=== PATIENT | female | born 1975 | race Caucasian/White ===

== ENCOUNTER → 2018-04-13 09:15 | Outpatient (CLI) | payer OTHER, MEDICAID, SELFPAY ==
--- NOTE | 2018-04-13 09:15 | DT_ITS ---
This patient was seen during an EMR downtime April 13, 2018 - April 20, 2018. This patient may have a combination of paper and electronic documentation or all paper documentation. All documentation is viewable within the e-chart portion of [employer] for each patient visit.
== END ==
PROVIDERS: Family Provider Family Medicine; PCP Family Medicine; Visit Provider Obstetrics & Gynecology
DX: N39.0 Urinary tract infection, site not specified (principal)
CPT/HCPCS: 81001

== ENCOUNTER → 2018-04-13 09:15 | Outpatient (CLI) | payer OTHER, SELFPAY ==
--- NOTE | 2018-04-13 09:15 | DT_ITS ---
This patient was seen during an EMR downtime April 13, 2018 - April 20, 2018. This patient may have a combination of paper and electronic documentation or all paper documentation. All documentation is viewable within the e-chart portion of [facility] for each patient visit.
[2018-04-16 18:17] LABS: Bacteria 0 SEEN /hpf (None Seen); Red Blood Cells-Urine 0 SEEN /hpf (0-5); White Blood Cells 0 SEEN /hpf (0-5)
[2018-04-16 18:29] LABS: Color, Urine Yellow (Yellow); Glucose, Dipstick NEGATIVE (Normal); Ketone-Dipstick Negative (Negative); Leukocyte Esterase-Dipstick Negative /ul (Negative); Mucous, Urine 1+ /hpf (<or=2+); Nitrite-Dipstick Negative (Negative); Occult Blood-Urine Negative /ul (Negative); Protein-Dipstick 15 mg/dl (Negative); Squamous Epithelial Cells - UA 0-5 SEEN /hpf (5-10); Urine Bilirubin Dipstick Negative (Negative); Urine Clarity Sl Cldy (Clear); Urine Urobilinogen Normal (Normal)
== END ==
PROVIDERS: Family Provider Family Medicine; PCP Family Medicine; Visit Provider Obstetrics & Gynecology
DX: N39.0 Urinary tract infection, site not specified (principal)
CPT/HCPCS: 81001

== ENCOUNTER → 2018-04-20 07:55 | Outpatient (CLI) | payer OTHER, SELFPAY ==
--- NOTE | 2018-04-20 07:55 | DT_ITS ---
This patient was seen during an EMR downtime April 13, 2018 - April 20, 2018. This patient may have a combination of paper and electronic documentation or all paper documentation. All documentation is viewable within the e-chart portion of [facility] for each patient visit.
--- NOTE | 2018-04-20 07:59 | BI_ITS ---
MAMMOGRAPHY - BILATERAL SCREENING REASON FOR EXAM: Female, 42 years old. Routine annual screening examination. PERTINENT HISTORY: Non-contributory. TECHNIQUE: Digital bilateral breast bri (3D mammographic acquisition) in the CC and MLO projections. 2-D mediolateral oblique (MLO) and craniocaudad (CC) views of both breasts were obtained. CAD: Full Field Digital Mammography with Computer Added Detection was performed. COMPARISON: Comparison is made with prior study dated April 14, 2017. FINDINGS: Breast Composition: There are scattered areas of fibroglandular density. There are no dominant masses or suspicious calcifications. No other significant abnormalities are identified. There has been no significant change since the prior study. BI/SCREENING MAMM (CAD), BILAT IMPRESSION: Stable bilateral screening mammogram. Yearly follow-up mammogram recommended. (A) ASSESSMENT CATEGORY: BIRADS Category 1: Negative. A letter regarding these results will be sent to the patient by the facility within 30 days. Approximately 10% of breast cancers are not detected by mammography. A normal mammogram should not delay biopsy of a clinically suspicious abnormality. [id number] Electronically Signed: Yohan Haddad MD at 14:06 EDT Tel [phone], Service support ,
== END ==
PROVIDERS: Family Provider Family Medicine; PCP Family Medicine; Visit Provider Obstetrics & Gynecology
DX: Z12.31 Encounter for screening mammogram for malignant neoplasm of breast (principal)
CPT/HCPCS: 77063; 77067

== ENCOUNTER → 2018-04-27 09:06 | Outpatient (CLI) | payer OTHER, MEDICAID, SELFPAY ==
[2018-04-27 09:36] LABS: Hematocrit 35.5 % (37-47); Hemoglobin 10.9 g/dl (12.0-15.0); Mean Corp Hgb Conc 30.7 g/gl (32-36); Mean Corpuscular Volume 78.2 fL (81-99); Mean Platelet Vol. 9.7 fl (6.2-12.0); Platelet Count 219 K/mm3 (150-450); RBC Distribution Width CV 15.9 % (11.6-14.6); RBC Distribution Width SD 45.3 fl (35.1-43.9); Red Blood Count 4.54 M/mm3 (4.2-5.4); White Blood Count 6.3 K/mm3 (4.4-11.0)
[2018-04-27 09:39] LABS: Scan Indicated on CBC? Y/N NO
[2018-04-27 09:52] LABS: Glucose 75GTT - Fasting 90 mg/dL (70-99)
[2018-04-27 10:09] LABS: Progesterone Level 0.22 ng/mL (See Comment); Vitamin D,25 Hydroxy 19.6 ng/mL (29.95-100.01)
[2018-04-27 10:19] LABS: Insulin 75GTT - Fasting 17.5 mU/L (2.6-37.6)
[2018-04-27 11:27] LABS: Glucose 75GTT - 60 minutes 133 mg/dL (100-160)
[2018-04-27 11:27] LABS: Glucose 75GTT - 30 minutes 111 mg/dL (100-160)
[2018-04-27 12:18] LABS: Insulin 75GTT - 60 min 123.5 mU/L (Not Estab)
[2018-04-27 12:18] LABS: Insulin 75GTT - 30 MIN 117.7 mU/L (Not Estab.)
[2018-04-27 12:23] LABS: Glucose 75GTT - 120 minutes 125 mg/dL (70-140)
[2018-04-27 12:28] LABS: Insulin 75GTT - 120 min 190.1 mU/L (Not Estab.)
[2018-04-27 13:17] LABS: ALB/GLOB Ratio 0.9 RATIO (0.9-2.4); AST(SGOT) 12 U/L (15-37); Alanine Aminotransfer ALT/SGPT 25 U/L (13-56); Albumin, Serum 3.5 g/dL (3.2-5.0); Alkaline Phosphatase 70 U/L (45-117); Anion Gap 6 (5-15); BUN 11 mg/dL (7-18); BUN/Creat Ratio 18.4 RATIO (10-20); Chloride 108 mmol/L (98-107); EST Glomerular Filtration Rate 117 mL/min (>60); Est Glom Filt Rate - Afr Amer 142 mL/min (>60); Estradiol 37.1 pg/mL; Follicle Stimulating Hormone 5.7 mIU/mL; Free T3 2.5 pg/mL (2.18-3.98); Globulin 3.8 g/dL (2.2-4.2); Glucose 86 mg/dL (74-106); Potassium 3.8 mmol/L (3.5-5.1); Prolactin 5.6 ng/mL; Protein, Total 7.3 g/dL (6.4-8.2); Sodium Level 141 mmol/L (136-145); T4 Free Direct 1.36 ng/dL (0.76-1.46)
[2018-04-28 04:10] LABS: DHEA Sulfate 66.5 ug/dL (57.3-279.2)
[2018-04-28 14:42] LABS: Sex Hormone-binding Globulin 43.3 nmol/L (24.6-122.0)
[2018-04-29 14:59] LABS: 17-Hydroxyprogesterone 14 ng/dL (.)
== END ==
PROVIDERS: Family Provider Family Medicine; PCP Family Medicine; Visit Provider Obstetrics & Gynecology
DX: R53.83 Other fatigue (principal); N92.1 Excessive and frequent menstruation with irregular cycle; Z68.37 Body mass index [BMI] 37.0-37.9, adult
CPT/HCPCS: 36415; 80053; 82306; 82533; 82627; 82670; 82951; 82952; 83001; 83498; 83525; 84144; 84146; 84270; 84403; 84439; 84443; 84481; 85027; 82626

== ENCOUNTER → 2018-06-22 08:47 | Outpatient (CLI) | payer OTHER, SELFPAY ==
[2018-06-22 12:07] LABS: Estradiol 63.7 pg/mL
[2018-06-23 04:10] LABS: DHEA Sulfate 92.9 ug/dL (57.3-279.2)
[2018-06-23 07:05] LABS: Sex Hormone-binding Globulin 50.8 nmol/L (24.6-122.0)
== END ==
PROVIDERS: Visit Provider Obstetrics & Gynecology
DX: R45.86 Emotional lability (principal); D50.8 Other iron deficiency anemias; N92.4 Excessive bleeding in the premenopausal period; Z68.37 Body mass index [BMI] 37.0-37.9, adult
CPT/HCPCS: 36415; 82533; 82627; 82670; 84270; 84403; 82626

== ENCOUNTER → 2018-09-01 16:09 | Outpatient (CLI) | payer OTHER, SELFPAY ==
[2018-09-01 17:21] LABS: Hematocrit 32.2 % (37-47); Mean Corp Hgb Conc 31.1 g/gl (32-36); Mean Corpuscular Hgb 22.4 pg (27.0-32.0); Mean Platelet Vol. 10.8 fl (6.2-12.0); Platelet Count 276 K/mm3 (150-450); RBC Distribution Width SD 43.6 fl (35.1-43.9); Red Blood Count 4.47 M/mm3 (4.2-5.4); White Blood Count 8.9 K/mm3 (4.4-11.0)
[2018-09-01 17:30] LABS: Scan Indicated on CBC? Y/N NO
[2018-09-01 18:10] LABS: Vitamin D,25 Hydroxy 59.9 ng/mL (29.95-100.01)
[2018-09-01 18:11] LABS: Estradiol 99.3 pg/mL; Free T3 2.4 pg/mL (2.18-3.98); T4 Free Direct 1.33 ng/dL (0.76-1.46); Thyroid Stim Hormone (TSH) 0.12 uIU/mL (0.358-3.74)
[2018-09-03 17:37] LABS: DHEA Sulfate 64.9 ug/dL (57.3-279.2)
[2018-09-04 15:13] LABS: Sex Hormone-binding Globulin 59.2 nmol/L (24.6-122.0)
== END ==
PROVIDERS: Visit Provider Obstetrics & Gynecology
DX: N92.4 Excessive bleeding in the premenopausal period (principal); R45.86 Emotional lability; D50.8 Other iron deficiency anemias
CPT/HCPCS: 36415; 82306; 82627; 82670; 84270; 84403; 84439; 84443; 84481; 85027; 82626

== ENCOUNTER → 2018-09-29 10:39 | Outpatient (CLI) | payer OTHER, SELFPAY ==
[2018-09-29 12:45] LABS: Ferritin 4 ng/mL (8-252); Iron 17 ug/dL (50-170); Iron Binding Capacity,Total 463 ug/dL (250-450)
[2018-09-30 13:02] LABS: Transferrin 370 mg/dL (200-370)
== END ==
PROVIDERS: Visit Provider Obstetrics & Gynecology
DX: D50.8 Other iron deficiency anemias (principal)
CPT/HCPCS: 36415; 82728; 83540; 83550; 84466

== ENCOUNTER → 2018-11-09 10:17 | Outpatient (CLI) | payer OTHER, MEDICAID, SELFPAY ==
[2018-11-09 10:34] VITALS: BP 141/83; PULSE 80; RESP 16; TEMP 36.6; O2SAT 100; BMI 33.6
== END ==
PROVIDERS: Family Provider Family Medicine; PCP Family Medicine; Referring Provider Obstetrics & Gynecology; Visit Provider Obstetrics & Gynecology
DX: D50.8 Other iron deficiency anemias (principal); N92.4 Excessive bleeding in the premenopausal period; D25.9 Leiomyoma of uterus, unspecified
CPT/HCPCS: 96365; 96366 ×3; J1756; J7050; A4216

== ENCOUNTER → 2018-11-16 08:57 | Outpatient (CLI) | payer OTHER, MEDICAID, SELFPAY ==
[2018-11-09 10:34] VITALS: BMI 33.6
[2018-11-16 09:19] VITALS: BP 133/81; PULSE 94; RESP 16; TEMP 36.2; O2SAT 97; BMI 33.6
== END ==
PROVIDERS: Family Provider Family Medicine; PCP Family Medicine; Referring Provider Obstetrics & Gynecology; Visit Provider Obstetrics & Gynecology
DX: D50.8 Other iron deficiency anemias (principal); N92.4 Excessive bleeding in the premenopausal period; D25.9 Leiomyoma of uterus, unspecified
CPT/HCPCS: 96365; 96366 ×3; J1756; J7050; A4216

== ENCOUNTER → 2018-11-30 10:22 | Outpatient (CLI) | payer OTHER, MEDICAID, SELFPAY ==
[2018-11-16 09:19] VITALS: BMI 33.6
[2018-11-30 11:34] LABS: Hematocrit 40.9 % (37-47); Hemoglobin 12.8 g/dl (12.0-15.0); Mean Corp Hgb Conc 31.3 g/gl (32-36); Mean Corpuscular Hgb 24.2 pg (27.0-32.0); Mean Corpuscular Volume 77.5 fL (81-99); Mean Platelet Vol. 11.4 fl (6.2-12.0); Platelet Count 279 K/mm3 (150-450); RBC Distribution Width CV 26.2 % (11.6-14.6); RBC Distribution Width SD 69.7 fl (35.1-43.9); Red Blood Count 5.28 M/mm3 (4.2-5.4); White Blood Count 6.9 K/mm3 (4.4-11.0)
[2018-11-30 11:35] LABS: Scan Indicated on CBC? Y/N YES- FLAGS NOTED
[2018-11-30 11:42] LABS: Ferritin 72 ng/mL (8-252); Iron 43 ug/dL (50-170); Iron Binding Capacity,Total 355 ug/dL (250-450)
[2018-11-30 11:54] LABS: Differential Comment SCANNED
[2018-11-30 15:19] LABS: Vitamin B12 936 pg/mL (211-911)
--- OUTSIDE RECORDS SUMMARY | 2019-02-01 20:44 | XMS RPT_ITS ---
:1975 Author Organization OH[facility] Care Team Providers Name Role Phone , Summer Attending Unavailable Shell-Stevan, Summer Referring Unavailable CHENTE, TENISHA Primary Care Unavailable -Stevan, Summer Attending Unavailable Shell-Stevan, Summer Referring Unavailable CHENTE, TENISHA Primary Care Unavailable Shell-Stevan, Summer Attending Unavailable CHENTE, TENISHA Primary Care Unavailable , Summer Attending Unavailable -Stvean, Summer Referring Unavailable CHENTE, TENISHA Primary Care Unavailable , Summer Attending Unavailable Shell-Stevan, Summer Referring Unavailable CHENTE, TENISHA Primary Care Unavailable Shell-Stevan, Summer Attending Unavailable TENISHA CANALES Primary Care Unavailable Shell-Stevan, Summer Attending Unavailable Shell-Stevan, Summer Referring Unavailable CHENTETENISHA HERNANDEZ Primary Care Unavailable Shell-Stevan, Summer Attending Unavailable CHENTEMORGANTENISHA Primary Care Unavailable Shell-Stevan, Summer Attending Unavailable Shell-Stevan, Summer Attending Unavailable PROBLEMS PROBLEMS DATE TYPE CONDITION / CODE ATTENDING STATUS SOURCE 11/30/2018 Unknown 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, 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 [facility] / D50.8(ICD-10) Hospital Repository 09/01/2018 Unknown R45.86 - Emotional Shell-Stevan, Active [place] lability / [facility] R45.86(ICD-10) Hospital Repository 09/01/2018 Unknown N92.4 - Excessive Shell-Stevan, Active [place] bleeding in the [facility] premenopausal Hospital period / Repository N92.4(ICD-10) 06/22/2018 Unknown Z68.37 - Body mass S[place]man-Stevan, Active [place] index (BMI) [facility] 37.0-37.9, adult / Hospital Z68.37(ICD-10) Repository 04/27/2018 Unknown R53.83 - Other Shell-Stevan, Active [place] fatigue / [facility] R53.83(ICD-10) Hospital Repository 04/27/2018 Unknown N92.1 - Excessive Shell-Stevan, Active [place] and frequent [facility] menstruation with Hospital irregular cycle / Repository N92.1(ICD-10) 05/06/2018 Unknown Z12.31 - Encounter Shell-Stevan, Active [place] for screening [facility] mammogram for Hospital malignant neoplasm Repository of breast / Z12.31(ICD-10) 05/06/2018 Unknown N39.0 - Urinary Shell-Stevan, Active [place] tract infection, [facility] site not specified Hospital / N39.0(ICD-10) Repository PROCEDURES PROCEDURES No Procedure Records FoundRESULTS RESULTS CBC-COMPLETE BLOOD CNT Collected: 11/30/2018 Status: F Source: [place] NO DIFF 10:25 AM [facility] REPOSITORY TYPE CODE TESTS RESULT OUT OF RANGE REFERENCE UNITS LAB L100.1000 4.4-11.0 K/mm3 Normal WBC 6.9 LAB L100.1200 4.2-5.4 M/mm3 Normal RBC 5.28 LAB L100.1300 12.0-15.0 g/dl Normal HGB 12.8 LAB L100.1400 37-47 % Normal HCT 40.9 LAB L100.1500 81-99 fL Low MCV 77.5 LAB L100.1600 27.0-32.0 pg Low MCH 24.2 LAB L100.1700 32-36 g/gl Low MCHC 31.3 LAB L100.1810 11.6-14.6 % High RDW CV 26.2 LAB L100.1820 35.1-43.9 fl High RDW SD 69.7 LAB L100.1900 150-450 K/mm3 Normal PLT 279 LAB L100.2000 6.2-12.0 fl Normal MPV 11.4 Performed By: #### L100.0500, L100.4500 #### [facility] [address] [place], [address] DIFFERENTIAL COMMENT Collected: 11/30/2018 Status: F Source: [place] 10:[address] [facility] REPOSITORY TYPE CODE TESTS RESULT OUT OF RANGE REFERENCE UNITS LAB L100.4500 Normal SMEAR COMMENT SCANNED Result Comment: 1+ ANISOCYTOSIS Performed By: #### L100.0500, L100.4500 #### [facility] [address] [place], [place], [id number] IRON BINDING Collected: 11/30/2018 Status: F Source: [place] [facility] [place],TOTAL 10:[address] [facility] REPOSITORY TYPE CODE TESTS RESULT OUT OF RANGE REFERENCE UNITS LAB L503.6075 250-450 ug/dL Normal TIBC 355 Performed By: #### L503.6075, L503.6150, L503.6550 #### [facility] [address] [place], [place], [id number] IRON Collected: 11/30/2018 Status: F Source: [place] 10:[address] [facility] REPOSITORY TYPE CODE TESTS RESULT OUT OF RANGE REFERENCE UNITS LAB L503.6150 50-170 ug/dL Low IRON 43 Performed By: #### L503.6075, L503.6150, L503.6550 #### [facility] [address] [place], [address] FERRITIN Collected: 11/30/2018 Status: F Source: [place] 10:[address] [facility] REPOSITORY TYPE CODE TESTS RESULT OUT OF RANGE REFERENCE UNITS LAB L503.6550 8-252 ng/mL Normal FERRITIN 72 Performed By: #### L503.6075, L503.6150, L503.6550 #### [facility] [address] [place], [address] VITAMIN B12 Collected: 11/30/2018 Status: F Source: [place] 10:[address] [facility] REPOSITORY Order Comment: PLEASE ADD TO LABS DRAWN THIS MORNING: MG3-1-F TYPE CODE TESTS RESULT OUT OF REFERENCE UNITS RANGE LAB L503.0105 211-911 pg/mL High Vitamin B12 936 Performed By: #### L503.0105 #### [facility] [address] [place] [address] [place], [address] IRON BINDING Collected: 09/29/2018 Status: F Source: [place],TOTAL 10:[address] [facility] REPOSITORY TYPE CODE TESTS RESULT OUT OF RANGE REFERENCE UNITS LAB L503.6075 250-450 ug/dL High TIBC 463 Performed By: #### L503.6075, L503.6150, L503.6550 #### [facility] [address] [place], [address] IRON Collected: 09/29/2018 Status: F Source: [place] 10:[address] [facility] REPOSITORY TYPE CODE TESTS RESULT OUT OF RANGE REFERENCE UNITS LAB L503.6150 50-170 ug/dL Low IRON 17 Performed By: #### L503.6075, L503.6150, L503.6550 #### [facility] [address] [place], [address] FERRITIN Collected: 09/29/2018 Status: F Source: [place] 10:[address] [facility] REPOSITORY TYPE CODE TESTS RESULT OUT OF REFERENCE UNITS RANGE LAB L503.6550 8-252 ng/mL Low FERRITIN 4 Performed By: #### L503.6075, L503.6150, L503.6550 #### [place] [facility] [address] [place], [place], [id number] TRANSFERRIN Collected: 09/29/2018 Status: F Source: [place] 10:[address] [facility] REPOSITORY TYPE CODE TESTS RESULT OUT OF RANGE REFERENCE UNITS LAB L3400.3800 200-370 mg/dL Normal TRANSFERRN 4937 370 Result Comment: Performed at: - [facility] [address] [id number] Order Entry Representative: Jay Lorenzana PhD, Phone: [phone] Performed By: #### L3400.3800 #### [facility] (refer to report for specific site) refer to report for address and phone number CBC-COMPLETE BLOOD CNT Collected: 09/01/2018 Status: F Source: [place] NO DIFF 4:[address] [facility] REPOSITORY TYPE CODE TESTS RESULT OUT OF RANGE REFERENCE UNITS LAB L100.1000 4.4-11.0 K/mm3 Normal WBC 8.9 LAB L100.1200 4.2-5.4 M/mm3 Normal RBC 4.47 LAB L100.1300 12.0-15.0 g/dl Low HGB 10.0 LAB L100.1400 37-47 % Low HCT 32.2 LAB L100.1500 81-99 fL Low MCV 72.0 LAB L100.1600 27.0-32.0 pg Low MCH 22.4 LAB L100.1700 32-36 g/gl Low MCHC 31.1 LAB L100.1810 11.6-14.6 % High RDW CV 17.0 LAB L100.1820 35.1-43.9 fl Normal RDW SD 43.6 LAB L100.1900 150-450 K/mm3 Normal PLT 276 LAB L100.2000 6.2-12.0 fl Normal MPV 10.8 Performed By: #### L100.0500 #### [facility] [address] [place], [address] VITAMIN D,25 HYDROXY Collected: 09/01/2018 Status: F Source: [place] 4:[address] [facility] REPOSITORY TYPE CODE TESTS RESULT OUT OF RANGE REFERENCE UNITS LAB L506.1000 29.95-100.01 ng/mL Normal Vitamin D 59.9 25-OH Result Comment: Vitamin D 25(OH) Status Range Deficiency <20 ng/mL (50nmol/L) Insuffciency 20 - 30 ng/mL (50 - 75 nmol/L) Sufficiency 30 - 100 ng/mL (75 - 250 nmol/L) Toxicity >100 ng/mL (>250 nmol/L) Performed By: #### L506.1000, L509.3000 #### [facility] [address] [place], [address] TESTOSTERONE, SERUM TOTAL Collected: 09/01/2018 Status: F Source: [place] 4:[address] [facility] REPOSITORY TYPE CODE TESTS RESULT OUT OF REFERENCE UNITS RANGE LAB L509.3000 ng/dL Testosterone Normal 13.60 Result Comment: NORMAL REFERENCE RANGES MALE AGE <50 123.06 - 813.86 ng/dL MALE AGE >50 89.98 - 780.10 ng/dL FEMALE PREMENOPAUSE AGE 21 - 60 9.01 - 47.94 ng/dL FEMALE POSTMENOPAUSE AGE 45 - 89 <7.00 - 45.62 ng/dL REFERENCE RANGE AND METHODOLOGY CHANGED 10/29/2017 Performed By: #### L506.1000, L509.3000 #### [facility] [address] [place], [place], [address] FREE T3 Collected: 09/01/2018 Status: F Source: [place] 4:[address] [facility] REPOSITORY Order Comment: Has Patient had X-rays with Contrast this admission? N TYPE CODE TESTS RESULT OUT OF RANGE REFERENCE UNITS LAB L501.33725 2.18-3.98 pg/mL Normal FREE T3 2.4 Performed By: #### L501.70815, L501.9520, L506.0400, L3300.1750 #### [facility] [address] [place], [address] THYROID STIM HORMONE Collected: 09/01/2018 Status: F Source: [place] (TSH) 4:[address] [facility] REPOSITORY Order Comment: Has Patient had X-rays with Contrast this admission? N TYPE CODE TESTS RESULT OUT OF RANGE REFERENCE UNITS LAB L501.9520 0.358-3.74 uIU/mL Low TSH 0.12 Performed By: #### L501.65174, L501.9520, L506.0400, L3300.1750 #### [facility] [address] [place], [place], [address] T4 FREE DIRECT Collected: 09/01/2018 Status: F Source: [place] 4:[address] [facility] REPOSITORY Order Comment: Has Patient had X-rays with Contrast this admission? N TYPE CODE TESTS RESULT OUT OF RANGE REFERENCE UNITS LAB L506.0400 0.76-1.46 ng/dL Normal T4 FREE 1.33 DIRECT Performed By: #### L501.43971, L501.9520, L506.0400, L3300.1750 #### [facility] [address] [place], [place], [address] ESTRADIOL Collected: 09/01/2018 Status: F Source: [place] 4:[address] [facility] REPOSITORY Order Comment: Has Patient had X-rays with Contrast this admission? N TYPE CODE TESTS RESULT OUT OF RANGE REFERENCE UNITS LAB L3300.1750 pg/mL Normal ESTRADIOL 99.3 Result Comment: NORMAL REFERENCE RANGES FEMALE FOLLICULAR 21.4 - 164.8 pg/mL MID-CYCLE PEAK 49.9 - 367.2 pg/mL LUTEAL 40.2 - 259.0 pg/mL POST-MENOPAUSAL ON MHT <11.0 - 462.1 pg/mL NOT ON MHT <11.0 - 58.3 pg/mL MALE <11.0 - 52.5 pg/mL NOTE: [facility] HAS CONFIRMED THE DRUG FULVETRANT (FASLODEX) MAY CAUSE FALSELY ELEVATED ESTRADIOL RESULTS WHEN USING THIS TEST METHOD. IF PATIENT IS TAKING FULVESTRANT AN ALTERNATIVE METHOD SHOULD BE USED TO DETERMINE ESTRADIOL CONCENTRATION. Performed By: #### L501.39858, L501.9520, L506.0400, L3300.1750 #### [facility] [address] [place], [place], [address] SEX HORMONE-BINDING Collected: 09/01/2018 Status: F Source: [place] GLOBULIN 4:[address] [facility] REPOSITORY Order Comment: Has Patient had Radioactive Injection for X-ray?: N TYPE CODE TESTS RESULT OUT OF RANGE REFERENCE UNITS LAB L3100.5060 24.6-122.0 nmol/L Normal SHBG 59.2 Result Comment: Performed at: [facility] [address] [id number] Order Entry Representative: Jay Lorenzana PhD, Phone: [phone] Performed By: #### L3100.5060, L3300.1500 #### [facility] (refer to report for specific site) refer to report for address and phone number DHEA SULFATE Collected: 09/01/2018 Status: F Source: [place] 4:[address] [facility] REPOSITORY Order Comment: Has Patient had Radioactive Injection for X-ray?: N TYPE CODE TESTS RESULT OUT OF RANGE REFERENCE UNITS LAB L3300.1500 57.3-279.2 ug/dL Normal DHEA SULF 64.9 4020 Performed By: #### L3100.5060, L3300.1500 #### [facility] (refer to report for specific site) refer to report for address and phone number ESTRADIOL Collected: 06/22/2018 Status: F Source: [place] 8:[address] [facility] REPOSITORY TYPE CODE TESTS RESULT OUT OF RANGE REFERENCE UNITS LAB L3300.1750 pg/mL Normal ESTRADIOL 63.7 Result Comment: NORMAL REFERENCE RANGES FEMALE FOLLICULAR 21.4 - 164.8 pg/mL MID-CYCLE PEAK 49.9 - 367.2 pg/mL LUTEAL 40.2 - 259.0 pg/mL POST-MENOPAUSAL ON MHT <11.0 - 462.1 pg/mL NOT ON MHT <11.0 - 58.3 pg/mL MALE <11.0 - 52.5 pg/mL NOTE: [facility] HAS CONFIRMED THE DRUG FULVETRANT (FASLODEX) MAY CAUSE FALSELY ELEVATED ESTRADIOL RESULTS WHEN USING THIS TEST METHOD. IF PATIENT IS TAKING FULVESTRANT AN ALTERNATIVE METHOD SHOULD BE USED TO DETERMINE ESTRADIOL CONCENTRATION. Performed By: #### L3300.1750 #### [facility] [address] [place], [address] TESTOSTERONE, SERUM TOTAL Collected: 06/22/2018 Status: F Source: [place] 8:[address] [facility] REPOSITORY TYPE CODE TESTS RESULT OUT OF REFERENCE UNITS RANGE LAB L509.3000 ng/dL Testosterone Normal 15.83 Result Comment: NORMAL REFERENCE RANGES MALE AGE <50 123.06 - 813.86 ng/dL MALE AGE >50 89.98 - 780.10 ng/dL FEMALE PREMENOPAUSE AGE 21 - 60 9.01 - 47.94 ng/dL FEMALE POSTMENOPAUSE AGE 45 - 89 <7.00 - 45.62 ng/dL REFERENCE RANGE AND METHODOLOGY CHANGED 10/29/2017 Performed By: #### L509.3000, L509.6000 #### [facility] [address] [facility] [place], [address] CORTISOL SERUM Collected: 06/22/2018 Status: F Source: [place] 8:[address] [facility] REPOSITORY TYPE CODE TESTS RESULT OUT OF RANGE REFERENCE UNITS LAB L509.6000 3.09-22.40 ug/dL Normal CORTISOL 14.20 Result Comment: Adult (AM) 4.30 - 22.40 ug/dL Adult (PM) 3.09 - 16.66 ug/dL Performed By: #### L509.3000, L509.6000 #### [facility] [address] [facility] [address] [place], [place], [address] SEX HORMONE-BINDING Collected: 06/22/2018 Status: F Source: [place] GLOBULIN 8:[address] [facility] REPOSITORY Order Comment: Has Patient had Radioactive Injection for X-ray?: N TYPE CODE TESTS RESULT OUT OF RANGE REFERENCE UNITS LAB L3100.5060 24.6-122.0 nmol/L Normal SHBG 50.8 Result Comment: Performed at: [address] [id number] Order Entry Representative: Jay Lorenzana PhD, Phone: [phone] Performed By: #### L3100.5060, L3300.1500 #### [facility]er [facility] for specific [facility] refer to report for address and phone number DHEA SULFATE Collected: 06/22/2018 Status: F Source: [place] 8:[address] [facility] REPOSITORY Order Comment: Has Patient had Radioactive Injection for X-ray?: N TYPE CODE TESTS RESULT OUT OF RANGE REFERENCE UNITS LAB L3300.1500 57.3-279.2 ug/dL Normal DHEA SULF 92.9 4020 Performed By: #### L3100.5060, L3300.1500 #### [facility] (refer to report for specific site) refer to report for address and phone number DOWNTIME REPORT Observed: 04/30/2018 Status: F Source: [place] 1:28 PM [facility] Medical Records Department [address] [place] [address] Downtime Report MR#: [id number] Acct: [id number] Name: ENE MORGAN Rep #: [id number] : 1975 42 From: [place] PCP: Tenisha Canales MD Status: REG CLI This patient was seen during an EMR downtime April 13, 2018 - April 20, 2018. This patient may have a combination of paper and electronic documentation or all paper documentation. All documentation is viewable within the e-chart portion of [employer] for each patient visit. DOWNTIME REPORT Observed: 04/30/2018 Status: F Source: [place] 1:24 PM [facility] Medical Records Department [address] [place] [address] Downtime Report MR#: [id number] Acct: [id number] Name: ENE MORGAN Rep #: [id number] : 1975 42 From: [place] PCP: Tenisha Canales MD Status: REG CLI This patient was seen during an EMR downtime April 13, 2018 - April 20, 2018. This patient may have a combination of paper and electronic documentation or all paper documentation. All documentation is viewable within the e-chart portion of [employer] for each patient visit. DOWNTIME REPORT Observed: 04/30/2018 Status: F Source: [place] 12:26 PM [facility] Medical Records Department [address] [place] [address] Downtime Report MR#: [id number] Acct: [id number] Name: ENE MORGAN Rep #: [id number] : 1975 42 From: [place] PCP: Tenisha Canales MD Status: REG CLI This patient was seen during an EMR downtime April 13, 2018 - April 20, 2018. This patient may have a combination of paper and electronic documentation or all paper documentation. All documentation is viewable within the e-chart portion of [employer] for each patient visit. 2 HR GLUCOSE TOLERANCE Collected: 04/27/2018 Status: F Source: [place] - 75 GM 9:[address] [facility] REPOSITORY Order Comment: Is Patient Fasting? Y TYPE CODE TESTS RESULT OUT OF RANGE REFERENCE UNITS LAB L501.0703 70-99 mg/dL Normal GLU 75GTT 90 - F Result Comment: GLUCOSE TOLERANCE TEST Reference Interval Non- Adults Fasting 70 - 99 30 minutes 100 - 160 60 minutes 100 - 160 120 minutes 70 - 140 LAB L501.0705 100-160 mg/dL Normal GLU 75GTT - 30 111 Result Comment: GLUCOSE TOLERANCE TEST Reference Interval Non- Adults Fasting 70 - 99 30 minutes 100 - 160 60 minutes 100 - 160 120 minutes 70 - 140 LAB L501.0710 100-160 mg/dL Normal GLU 75GTT - 60 133 Result Comment: GLUCOSE TOLERANCE TEST Reference Interval Non- Adults Fasting 70 - 99 30 minutes 100 - 160 60 minutes 100 - 160 120 minutes 70 - 140 LAB L501.0715 70-140 mg/dL Normal GLU 75GTT - 120 125 Result Comment: GLUCOSE TOLERANCE TEST Reference Interval Non- Adults Fasting 70 - 99 30 minutes 100 - 160 60 minutes 100 - 160 120 minutes 70 - 140 Performed By: #### L500.5100 #### [facility] [address] [facility] [id number] 2 HR INSULIN - 75 GM Collected: 04/27/2018 Status: F Source: [place] 9:[address] [facility] REPOSITORY TYPE CODE TESTS RESULT OUT OF RANGE REFERENCE UNITS LAB L503.8060 2.6-37.6 mU/L Normal INSUL 17.5 75GTT - F LAB L503.8065 Not Estab. mU/L Normal INSU 117.7 75GTT - 30 LAB L503.8070 Not Estab mU/L Normal INSU 123.5 75GTT - 60 LAB L503.8075 Not Estab. mU/L Normal INSU 190.1 75GTT-120 Result Comment: 75 GRAM GLUCOLA INSULIN TEST Reference Interval Non- Adults Fasting 2.6 - 37.6 30 min Not Estab 60 min Not Estab 120 min Not Estab Performed By: #### L503.8055 #### [facility] [address] [place], [address] CBC-COMPLETE BLOOD CNT Collected: 04/27/2018 Status: F Source: [place] NO DIFF 9:[address] [facility] REPOSITORY TYPE CODE TESTS RESULT OUT OF RANGE REFERENCE UNITS LAB L100.1000 4.4-11.0 K/mm3 Normal WBC 6.3 LAB L100.1200 4.2-5.4 M/mm3 Normal RBC 4.54 LAB L100.1300 12.0-15.0 g/dl Low HGB 10.9 LAB L100.1400 37-47 % Low HCT 35.5 LAB L100.1500 81-99 fL Low MCV 78.2 LAB L100.1600 27.0-32.0 pg Low MCH 24.0 LAB L100.1700 32-36 g/gl Low MCHC 30.7 LAB L100.1810 11.6-14.6 % High RDW CV 15.9 LAB L100.1820 35.1-43.9 fl High RDW SD 45.3 LAB L100.1900 150-450 K/mm3 Normal PLT 219 LAB L100.2000 6.2-12.0 fl Normal MPV 9.7 Performed By: #### L100.0500 #### [facility] [address] [place], [address] VITAMIN D,25 HYDROXY Collected: 04/27/2018 Status: F Source: [place] 9:[address] [facility] REPOSITORY Order Comment: BASELINE OR POST MEDICATION STIMULATION?: Baseline TYPE CODE TESTS RESULT OUT OF REFERENCE UNITS RANGE LAB L506.1000 29.95-100.01 ng/mL Low Vitamin D 19.6 25-OH Result Comment: Vitamin D 25(OH) Status Range Deficiency <20 ng/mL (50nmol/L) Insuffciency 20 - 30 ng/mL (50 - 75 nmol/L) Sufficiency 30 - 100 ng/mL (75 - 250 nmol/L) Toxicity >100 ng/mL (>250 nmol/L) Performed By: #### L506.1000, L509.3000, L509.4001, L509.6000 #### [facility] [address] [place], [address] TESTOSTERONE, SERUM TOTAL Collected: 04/27/2018 Status: F Source: [place] 9:[address] [facility] REPOSITORY Order Comment: BASELINE OR POST MEDICATION STIMULATION?: Baseline TYPE CODE TESTS RESULT OUT OF REFERENCE UNITS RANGE LAB L509.3000 ng/dL Testosterone Normal 11.52 Result Comment: NORMAL REFERENCE RANGES MALE AGE <50 123.06 - 813.86 ng/dL MALE AGE >50 89.98 - 780.10 ng/dL FEMALE PREMENOPAUSE AGE 21 - 60 9.01 - 47.94 ng/dL FEMALE POSTMENOPAUSE AGE 45 - 89 <7.00 - 45.62 ng/dL REFERENCE RANGE AND METHODOLOGY CHANGED 10/29/2017 Performed By: #### L506.1000, L509.3000, L509.4001, L509.6000 #### [facility] [address] [place], [place], [id number] PROGESTERONE LEVEL Collected: 04/27/2018 Status: F Source: [place] 9:[address] [facility] REPOSITORY Order Comment: BASELINE OR POST MEDICATION STIMULATION?: Baseline TYPE CODE TESTS RESULT OUT OF REFERENCE UNITS RANGE LAB L509.4001 See Comment ng/mL Progesterone Normal 0.22 Result Comment: Progesterone Reference Table: UNITS Female: Follicular 0.15 - 1.40 ng/mL Luteal 3.34 - 25.56 ng/mL Mid-luteal 4.44 - 28.03 ng/mL Postmenopausal 0.0 - 0.73 ng/mL : 1st Trimester 11.22 - 90.00 ng/mL 2nd Trimester 25.55 - 89.40 ng/mL 3rd Trimester 48.40 -422.50 ng/mL Performed By: #### L506.1000, L509.3000, L509.4001, L509.6000 #### [facility] [address] [facility] [place], [place], [address] CORTISOL SERUM Collected: 04/27/2018 Status: F Source: [place] 9:[address] [facility] REPOSITORY Order Comment: BASELINE OR POST MEDICATION STIMULATION?: Baseline TYPE CODE TESTS RESULT OUT OF RANGE REFERENCE UNITS LAB L509.6000 3.09-22.40 ug/dL Normal CORTISOL 3.60 Result Comment: Adult (AM) 4.30 - 22.40 ug/dL Adult (PM) 3.09 - 16.66 ug/dL Performed By: #### L506.1000, L509.3000, L509.4001, L509.6000 #### [facility] [address] [place], [place], [address] COMPREHENSIVE METABOLIC Collected: 04/27/2018 Status: F Source: [place] DICKINSON 9:[address] [facility] REPOSITORY TYPE CODE TESTS RESULT OUT OF RANGE REFERENCE UNITS LAB L501.0100 74-106 mg/dL Normal GLU 86 Result Comment: Please note revised GLUCOSE reference range effective 2017. LAB L501.1000 7-18 mg/dL Normal BUN 11 LAB L501.1100 0.55-1.02 mg/dL Normal CREAT,SERUM 0.60 Result Comment: The validity of the calculated GFR AND GFRAA in patients over 70 years has not been determined. Clinical correlation is essential. LAB L501.1110 >60 mL/min Normal EST GFR 117 Result Comment: Non- GFR Calc LAB L501.1115 >60 mL/min Normal EST GFR - AA 142 Result Comment: GFR Calc LAB L501.1300 10-20 RATIO Normal BUN/CRE 18.4 LAB L501.1500 6.4-8.2 g/dL T Normal PROT 7.3 LAB L501.1800 3.2-5.0 g/dL Normal ALB 3.5 LAB L501.1950 2.2-4.2 g/dL Normal GLOB 3.8 LAB L501.2000 0.9-2.4 RATIO Normal A/G 0.9 LAB L501.2200 8.5-10.1 mg/dL Low CA 8.0 LAB L501.4100 15-37 U/L Low AST 12 LAB L501.4305 45-117 U/L Normal ALK P 70 LAB L501.4405 13-56 U/L Normal ALT 25 LAB L501.4600 0.20-1.00 mg/dL T Normal BILI 0.20 LAB L501.5300 136-145 mmol/L NA Normal 141 LAB L501.5600 3.5-5.1 mmol/L K Normal 3.8 LAB L501.5900 98-107 mmol/L High CL 108 LAB L501.6100 21.0-32.0 mmol/L Normal CO2 27.0 LAB L501.6200 5-15 Normal GAP 6 Performed By: #### L500.4050, L501.66060, L501.9520, L506.0400, L3100.5125, L3100.5420, L3300.1750 #### [facility] [address] [place], [address] FREE T3 Collected: 04/27/2018 Status: F Source: [place] 9:[address] [facility] REPOSITORY TYPE CODE TESTS RESULT OUT OF RANGE REFERENCE UNITS LAB L501.18752 2.18-3.98 pg/mL Normal FREE T3 2.5 Performed By: #### L500.4050, L501.95245, L501.9520, L506.0400, L3100.5125, L3100.5420, L3300.1750 #### [place] [facility] [address] [place], [address] THYROID STIM HORMONE Collected: 04/27/2018 Status: F Source: PETTY (TSH) 9:[address] [facility] REPOSITORY TYPE CODE TESTS RESULT OUT OF RANGE REFERENCE UNITS LAB L501.9520 0.358-3.74 uIU/mL Low TSH 0.10 Performed By: #### L500.4050, L501.29375, L501.9520, L506.0400, L3100.5125, L3100.5420, L3300.1750 #### [facility] [address] [place], [address] T4 FREE DIRECT Collected: 04/27/2018 Status: F Source: PETTY 9:[address] [facility] REPOSITORY TYPE CODE TESTS RESULT OUT OF RANGE REFERENCE UNITS LAB L506.0400 0.76-1.46 ng/dL Normal T4 FREE 1.36 DIRECT Performed By: #### L500.4050, L501.41511, L501.9520, L506.0400, L3100.5125, L3100.5420, L3300.1750 #### [facility] [address] [place], [address] FOLLICLE STIMULATING Collected: 04/27/2018 Status: F Source: PETTY HORMONE 9:[address] [facility] REPOSITORY TYPE CODE TESTS RESULT OUT OF RANGE REFERENCE UNITS LAB L3100.5125 mIU/mL Normal FSH 5.7 Result Comment: NORMAL REFERENCE RANGES FEMALE FOLLICULAR 2.3 - 12.6 mIU/mL MID-CYCLE PEAK 5.2 - 17.5 mIU/mL LUTEAL 1.7 - 12.9 mIU/mL POST-MENOPAUSAL ON MHT 5.9 - 72.8 mIU/mL NOT ON MHT 12.7 - 132.2 mlU/mL MALE 0.7 - 10.8 mIU/mL NEW TEST METHOD AND REFERENCE RANGES MARCH 30, 2012 Performed By: #### L500.4050, L501.85677, L501.9520, L506.0400, L3100.5125, L3100.5420, L3300.1750 #### [facility] [address] [place], [place], [address] PROLACTIN Collected: 04/27/2018 Status: F Source: NAPOLEON 9:[address] [facility] REPOSITORY TYPE CODE TESTS RESULT OUT OF RANGE REFERENCE UNITS LAB L3100.5420 ng/mL Normal PROLACTIN 5.6 Result Comment: NORMAL REFERENCE RANGES FEMALE NON- 2.2 - 30.3 ng/mL 8.1 - 347.6 ng/mL POST-MENOPAUSAL 0.7 - 31.5 ng/mL MALE 2.5 - 17.4 ng/mL NEW TEST METHOD AND REFERENCE RANGES MARCH 30, 2012 Performed By: #### L500.4050, L501.78008, L501.9520, L506.0400, L3100.5125, L3100.5420, L3300.1750 #### [facility] [address] [place], [place], [address] ESTRADIOL Collected: 04/27/2018 Status: F Source: NAPOLEON 9:[address] [facility] REPOSITORY TYPE CODE TESTS RESULT OUT OF RANGE REFERENCE UNITS LAB L3300.1750 pg/mL Normal ESTRADIOL 37.1 Result Comment: NORMAL REFERENCE RANGES FEMALE FOLLICULAR 21.4 - 164.8 pg/mL MID-CYCLE PEAK 49.9 - 367.2 pg/mL LUTEAL 40.2 - 259.0 pg/mL POST-MENOPAUSAL ON MHT <11.0 - 462.1 pg/mL NOT ON MHT <11.0 - 58.3 pg/mL MALE <11.0 - 52.5 pg/mL NOTE: [facility] HAS CONFIRMED THE DRUG FULVETRANT (FASLODEX) MAY CAUSE FALSELY ELEVATED ESTRADIOL RESULTS WHEN USING THIS TEST METHOD. IF PATIENT IS TAKING FULVESTRANT AN ALTERNATIVE METHOD SHOULD BE USED TO DETERMINE ESTRADIOL CONCENTRATION. Performed By: #### L500.4050, L501.68539, L501.9520, L506.0400, L3100.5125, L3100.5420, L3300.1750 #### [facility] [address] [place], [address] SEX HORMONE-BINDING Collected: 04/27/2018 Status: F Source: PETTY GLOBULIN 9:[address] [facility] REPOSITORY Order Comment: Has Patient had Radioactive Injection for X-ray?: N TYPE CODE TESTS RESULT OUT OF RANGE REFERENCE UNITS LAB L3100.5060 24.6-122.0 nmol/L Normal SHBG 43.3 Result Comment: Performed at: [address] [id number] Order Entry Representative: Jay Lorenzana PhD, Phone: [phone] Performed By: #### L3100.5060, L3300.1500 #### [facility] (refer to report for specific site) refer to report for address and phone number DHEA SULFATE Collected: 04/27/2018 Status: F Source: PETTY 9:[address] [facility] REPOSITORY Order Comment: Has Patient had Radioactive Injection for X-ray?: N TYPE CODE TESTS RESULT OUT OF RANGE REFERENCE UNITS LAB L3300.1500 57.3-279.2 ug/dL Normal DHEA SULF 66.5 4020 Performed By: #### L3100.5060, L3300.1500 #### [facility] (refer to report for specific site) refer to report for address and phone number [phone] Collected: Status: F Source: PETTY 04/27/2018 9:[address] [facility] REPOSITORY Order Comment: Has Patient had Radioactive Injection for X-ray?: N TYPE CODE TESTS RESULT OUT OF RANGE REFERENCE UNITS LAB L3100.9000 . ng/dL Normal HYDROXPROG 17 14 Result Comment: Adult Female Follicular 15 - 70 Luteal 35 - 290 This test was developed and its performance characteristics determined by [facility]. It has not been cleared or approved by the Food and Drug Administration. Performed at: [address] [id number] Order Entry Representative: Abelardo Herrera MD, Phone: [phone] Performed By: #### L3100.9000 #### [facility] (refer to report for specific site) refer to report for address and phone number SCREENING MAMM (CAD), Observed: 04/20/2018 Status: F Source: PETTY BILAT 7:[address] [facility] REPOSITORY [facility] Services [address] [place] [address] SCREENING MAMM (CAD), BILAT MR#: [id number] Acct: [id number] Name: ENE MORGAN Rep #: [id number] : 1975 F 42 From: Yohan Haddad MD PCP: Tenisha Canales MD Status: REG CLI Study: SCREENING MAMM (CAD), BILAT Date of Exam: 04/20/18 Exam# [id number] Ordering Dr: Nkechi Osborne MD MAMMOGRAPHY - BILATERAL SCREENING REASON FOR EXAM: Female, 42 years old. Routine annual screening examination. PERTINENT HISTORY: Non-contributory. TECHNIQUE: Digital bilateral breast bri (3D mammographic acquisition) in the CC and MLO projections. 2-D mediolateral oblique (MLO) and craniocaudad (CC) views of both breasts were obtained. CAD: Full Field Digital Mammography with Computer Added Detection was performed. COMPARISON: Comparison is made with prior study dated April 14, 2017. FINDINGS: Breast Composition: There are scattered areas of fibroglandular density. There are no dominant masses or suspicious calcifications. No other significant abnormalities are identified. There has been no significant change since the prior study. BI/SCREENING MAMM (CAD), BILAT IMPRESSION: Stable bilateral screening mammogram. Yearly follow-up mammogram recommended. (A) ASSESSMENT CATEGORY: BIRADS Category 1: Negative. A letter regarding these results will be sent to the patient by the facility within 30 days. Approximately 10% of breast cancers are not detected by mammography. A normal mammogram should not delay biopsy of a clinically suspicious abnormality. [id number] Electronically Signed: Yohan Haddad MD at 14:06 EDT Tel [phone], Service support , CC: Tenisha Canales MD; Nkechi Kim MD Registered Nurse Midwife: Signed URINALYSIS, COMPLETE Collected: 04/13/2018 Status: F Source: PETTY 9:[address] [facility] REPOSITORY Order Comment: RESULT(S) PREVIOUSLY REPORTED ON MANUAL REQUISITION DURING DOWNTIME. How was Urine Obtained? CLEAN CATCH TYPE CODE TESTS RESULT OUT OF RANGE REFERENCE UNITS LAB L400.3000 Yellow COLOR Normal Yellow LAB L400.3050 Clear Sl Normal CLARITY Cldy LAB L400.3200 Normal mg/dl Normal GLUCOSE, UR NEGATIVE LAB L400.3300 Negative mg/dL Normal BILIRUBIN URINE Negative LAB L400.3400 Negative mg/dl Normal KETONE UR Negative LAB L400.3465 1.002-1.030 Normal SP.GR. DIPSTX 1.020 LAB L400.3550 5.0 - 8.0 pH UR Normal 5.0 LAB L400.3600 Negative mg/dl High PROT 15 DIPSTX LAB L400.3700 Normal mg/dl Normal UROBILI Normal LAB L400.3750 Negative Normal NITRITE UR Negative LAB L400.3780 Negative /ul Normal OCCULT BLOOD-UR Negative LAB L400.3800 Negative /ul LEUK Normal ESTERASE Negative LAB L400.4050 0-5 /hpf WBC 0 Normal SEEN LAB L400.4100 0-5 /hpf 0 Normal RBC-UA SEEN LAB L400.4150 5-10 /hpf SQUAM Normal EPI 0-5 SEEN LAB L400.4300 None Seen /hpf 0 Normal BACTERIA SEEN LAB L400.4350 <or=2+ /hpf 1+ Normal MUCUS, URINE Performed By: #### L400.0001 #### [facility] [address] [place], [address] ALLERGIES ALLERGIES DATE TYPE / CODE NAME / CODE REACTION SEVERITY SOURCE 11/16/2018 Drug No Known Unknown [facility] Allergy/4160 Allergies/F00 [facility] [address]164(SNOMED [id number](RXNOR Repository CT) M) ENCOUNTERS ENCOUNTERS ADMIT/DISCHARGE ACCOUNT ADMITTING ENCOUNTER LOCATION SOURCE NUMBER CLASS 11/30/2018 [id number] Ambulatory [place] 8 [facility] ing:WOBLAB Repository 11/16/2018 [id number] Ambulatory [place] 9 [facility] ing:MEDOUTP Repository 11/09/2018 [id number] Ambulatory [place] 7 [facility] ing:MEDOUTP Repository 09/29/2018 [id number] Ambulatory [place] 5 [facility] ing:WOBLAB Repository 09/01/2018 [id number] Ambulatory [place] 3 [facility] ing:WOBLAB Repository 06/22/2018 [id number] Ambulatory [place] 7 [facility] ing:LAB.FUTUR Repository E 04/27/2018 [id number] Ambulatory [place] 5 [facility] ing:LAB Repository 04/20/2018 [id number] Ambulatory [place] 2 [facility] ing:OPBI Repository 04/13/2018 [id number] Amb[place] 8 [facility] ing:LABSPEC Repository 04/13/2018 [id number] Ambulatory [place] 3 [facility] ing:WOBLAB Repository PAYERS PAYERS ENCOUNTER GUARANTOR PAYER SUBSCRIBER SOURCE 11/30/2018 ENE A Primary ENE A [place] [id number] Insurance:HEALTH PLAN BROWNDOB: [facility] [employer] [facility] [id number] Number: Repository [id number]: (081) [id number] [phone] () Date: [place] [address]CZ: 11/30/2018 Secondary ENE A [place] Insurance:BUCKEYE CATHYDOB: [facility] [id number] PLANPolicy Number: Repository [id number] Date:5468-99-26[address] [facility] [place] [address]SY: 11/30/2018 Tertiary NOT GIVENUNK [place] Insurance:SELF PAY [facility] Number: Effective Repository Date:2018-11-30 11/16/2018 ENE A Primary ENE A [place] [id number] Insurance:HEALTH PLAN BROWNDOB: [facility] [facility] [id number] [facility] Number: Repository [id number]: 330 [id number] [phone] () Date: [place], [place] [address]SY: 11/16/2018 Secondary ENE A [place] Insurance:BUCKEYE CATHYDOB: [facility] [id number] PLANPolicy Number: Repository [id number] Date:[id number] [place] [address]UD: 11/16/2018 Tertiary NOT GIVENUNK [place] Insurance:SELF PAY [facility] Hospital Number: Effective Repository Date:2018-10-30 11/09/2018 ENE A Primary ENE A [place] [id number] Insurance:HEALTH PLAN BROWNDOB: [facility] [id number] Health Number: Repository [id number]: 330 [id number] [phone] () Date: [place], [place] [address]PE: 11/09/2018 Secondary ENE A [place] Insurance:MEDICAIDPol BROWNDOB: [facility] Number: [id number] Hospital [id number] Repository Date:2018-10-30 11/09/2018 Tertiary NOT GIVENUNK [place] Insurance:SELF PAY [facility] Number: Effective Repository Date:2018-10-30 09/29/2018 ENE A Primary ENE A [place] [id number] Insurance:HEALTH PLAN BROWNDOB: Community [facility] [id number] Health Number: Repository [id number]: 330 [id number] [phone] () Date: [place], [place] [address]TW: 09/29/2018 Secondary NOT GIVENUNK [place] Insurance:SELF PAY [facility] Number: Effective Repository Date:2018-09-29 09/01/2018 ENE A Primary ENE A [place] [id number] Insurance:HEALTH PLAN BROWNDOB: Community [facility] [id number] Health Number: Repository [id number]: 330 [id number] [phone] () Date: [place], [place] [address]WF: 09/01/2018 Secondary NOT GIVENUNK [place] Insurance:SELF PAY [facility] Number: Effective Repository Date:2018-09-01 06/22/2018 ENE A Primary ENE A [place] [id number] Insurance:HEALTH PLAN BROWNDOB: Community [facility] [id number] Health Number: Repository [id number]: 330 [id number] [phone] () Date: [place], [place] [address]WP: 06/22/2018 Secondary NOT GIVENUNK [place] Insurance:SELF PAY [facility] Hospital Number: Effective Repository Date:2018-05-24 04/27/2018 ENE A Primary ENE A [place] [id number] Insurance:HEALTH PLAN BROWNDOB: Community [facility] [id number] Health Number: Repository [address]Ypd: 330 [id number] [phone] () Date: [place], [place] [address]ZU: 04/27/2018 Secondary ENE A [place] Insurance:BUCKEYE BROWNDOB: Community [facility] [id number] Number: Repository [id number] Date:[id number] [place] [address]GA: 04/27/2018 Tertiary NOT GIVENUNK [place] Insurance:SELF PAY [facility] Hospital Number: Effective Repository Date:2018-04-27 04/20/2018 ENE A Primary ENE A [place] [id number] Insurance:HEALTH PLAN BROWNDOB: Community [facility] [id number] Health Number: Repository [id number]: 330 [id number] [phone] () Date: [place], [place] [address]KY: 04/20/2018 Secondary NOT GIVENUNK [place] Insurance:SELF PAY [facility] Number: Effective Repository Date:2018-01-19 04/13/2018 ENE A Primary ENE A [place] [id number] Insurance:HEALTH PLAN BROWNDOB: Community [facility] [id number] Health Number: Repository [id number]: 330 [id number] [phone] () Date: [place], [place] [address]YW: 04/13/2018 Secondary NOT GIVENUNK [place] Insurance:SELF PAY [facility] Number: Effective Repository Date:2018-04-13 04/13/2018 ENE A Primary ENE A [place] [id number] Insurance:HEALTH PLAN BROWNDOB: Community [facility] [id number] Health Number: Repository 0000[address]Nos: 330 [id number] [phone] () Date: [place], [place] [address]HG: 04/13/2018 Secondary ENE A [place] Insurance:BARRETT ZAVALA: [id number] Number: Repository [id number] Date:[id number] [address], [place] [address]XN: 04/13/2018 Tertiary NOT GIVENUNK [place] Insurance:SELF PAY [facility] Number: Effective Repository Date:2018-04-13
== END ==
PROVIDERS: Family Provider Family Medicine; PCP Family Medicine; Visit Provider Obstetrics & Gynecology
DX: D50.8 Other iron deficiency anemias (principal); D50.0 Iron deficiency anemia secondary to blood loss (chronic); N93.9 Abnormal uterine and vaginal bleeding, unspecified
CPT/HCPCS: 36415; 82607; 82728; 83540; 83550; 85027

== ENCOUNTER 2019-02-04 09:46 | Observation (INO) | payer OTHER, MEDICAID, SELFPAY ==
[2018-11-16 09:19] VITALS: BMI 33.6
[2019-01-28 17:33] LABS: Hematocrit 32.8 % (37-47); Hemoglobin 10.3 g/dl (12.0-15.0); Mean Corp Hgb Conc 31.4 g/gl (32-36); Mean Corpuscular Hgb 24.4 pg (27.0-32.0); Mean Corpuscular Volume 77.7 fL (81-99); Mean Platelet Vol. 9.3 fl (6.2-12.0); Platelet Count 226 K/mm3 (150-450); RBC Distribution Width CV 18.4 % (11.6-14.6); RBC Distribution Width SD 52.6 fl (35.1-43.9); Red Blood Count 4.22 M/mm3 (4.2-5.4); Scan Indicated on CBC? Y/N NO; White Blood Count 8.7 K/mm3 (4.4-11.0)
[2019-01-28 17:43] LABS: Prothrombin Time (Protime)PT. 12.8 SECONDS (11.7-14.9)
[2019-01-28 17:53] LABS: Anion Gap 6 (5-15); BUN 14 mg/dL (7-18); BUN/Creat Ratio 22.9 RATIO (10-20); Calcium,Total 8.5 mg/dL (8.5-10.1); Chloride 107 mmol/L (98-107); Creatinine, Serum 0.61 mg/dL (0.55-1.02); EST Glomerular Filtration Rate 114 mL/min (>60); Est Glom Filt Rate - Afr Amer 138 mL/min (>60); Glucose 114 mg/dL (74-106); Potassium 3.5 mmol/L (3.5-5.1); Sodium Level 140 mmol/L (136-145)
[2019-01-29 12:29] LABS: T4 Free Direct 1.02 ng/dL (0.76-1.46); Thyroid Stim Hormone (TSH) 0.53 uIU/mL (0.358-3.74)
[2019-01-29 13:08] LABS: Hemoglobin A1c 5.3 % (4.2-6.3)
[2019-02-04] VITALS (12 sets, daily range): BP systolic 97–121; BP diastolic 52–80; PULSE 63–86; RESP 16–18; TEMP 36.1–37; O2SAT 93–100; BMI 37.2; BMI 38.5
--- NOTE | 2019-02-04 05:34 | EKG12_ITS ---
Test Reason : PRE-OP Blood Pressure : / mmHG Vent. Rate : 077 BPM Atrial Rate : 077 BPM P-R Int : 122 ms QRS Dur : 080 ms QT Int : 388 ms P-R-T Axes : -13 019 004 degrees QTc Int : 439 ms Normal sinus rhythm Normal ECG No previous ECGs available Confirmed by JANNY HAMILTON, JULIA ([id number]), dictionary editor SONU MASON ([id number]) on 02/05/2019 2:04:01 PM Referred By: Nkechi Kim Confirmed By:JULIA SOLIMAN MD
[2019-02-04 05:55] LABS: Internal QC Validated? YES +Cl - CLEAR BKGD; Pregnancy, Urine Negative Negative
[2019-02-04] MEDS: Heparin Injection (Vial) 5,000 UNIT/ML VIAL 5000 UNIT SC ×3 (06:44→22:06)
--- NOTE | 2019-02-04 07:15 | HYST_PTH ---
PATIENT: ENE MORGAN LOC: MS2 U#:[id number] AGE/SX: 43/F [place] [facility]/04/[address]: Dr. Nkechi Calles MD : 1975 BED: 1 DIS: 02/05/2019 SPEC #: [id number] RECD: 02/04/19 10:15 STATUS: BREANNA RENikhil #: [id number] ILANA: 02/04/19 07:[address]: Nkechi Escalante DEPT: SURGICAL PATHOLOGY RECD BY: Ryland Mc ENTERED: 02/04/19 11:06 SP TYPE: HYSTERECT OTHR DR: MD Dr. Greg Nelson MD Tissues: Uterus, NOS Procedures: Surgery Specimen Level V HEADER OPERATION: Total vaginal hysterectomy, bilateral salpingectomy PRE-OP DIAGNOSIS: Abnormal uterine vaginal bleeding, stress urinary incontinence TISSUE SUBMITTED: Uterus, cervix, bilateral fallopian tubes MICROSCOPIC DIAGNOSIS Uterus, hysterectomy: Cervix - nabothian cysts and mild chronic inflammation. Endometrium - secretory endometrium. Myometrium - leiomyomas with degenerative and autolytic changes and adenomyosis. Right and left fallopian tubes - no pathologic change. AM:vibha 02/05/19 COMMENT Case has been reviewed in consultation with Dr. Santiago who concurs with the above diagnosis. IDC:SJ MICROSCOPIC DESCRIPTION Slides are reviewed. GROSS DESCRIPTION Received in fixative is one container labeled with the patient's name and designated uterus, cervix and bilateral fallopian tubes. The specimen consists of a hysterectomy specimen consisting of uterus with cervix, two detached pieces of nodular masses and two detached bilateral fallopian tubes. The uterus with two detached pieces of nodular masses weighs in aggregate 442 gm. The uterus is previously, partially opened and measures 13 x 12 x 8 cm. It is distorted. The serosal surface is ortega, glistening. Two detached pieces of nodular masses measures in aggregate 6 x 5 x 3 cm. The ectocervical mucosa is unremarkable. The external os is oval in contour. The endocervical canal measures 3 cm in length. The endometrial cavity is compressed to one side and shows a submucosal to intramural mass. The endometrium is ortega, glistening and measures up to 0.2 cm in thickness. The intramural to submucosal nodular mass shows degenerative changes and measures 7 cm in greatest dimension. The uninvolved uterine wall measures up to 4 cm in thickness. The detached pieces of nodular tissue, one of the pieces appear to consist of ortega wall with portion of endometrial cavity. The second piece appears to consist of a portion of nodular mass. The fallopian tubes are not identified as right or left. One of the fallopian tubes measures 5 cm in length and 0.5 cm in diameter. The fimbrial end is identified. Sections reveal unremarkable cut surfaces. The second fallopian tube measures 4.5 cm in length and 0.5 cm in diameter. Sections reveal unremarkable cut surfaces. Associate Justice sections are submitted in 12?cassettes as follows: 1 - anterior cervix, 2 - posterior cervix, 3-6 - uterine wall including endometrium, 7 & 8 - nodular mass, 9 - nodular mass and detached portion of tissue, 10 - detached portion of tissue including endometrial cavity, 11 & 12 - bilateral fallopian tubes with each cassette including one fallopian tube. / NATI:vibha 02/04/19 TC:1 CPT: 31528
[2019-02-04] MEDS: Lubricating Jelly 60 GM Tube 30 GM TOPICAL (07:45)
[2019-02-04] MEDS: Vasopressin 20 UNITS/ML Vial (07:46)
--- NOTE | 2019-02-04 09:44 | PCM.OPRPT ---
Problem List (1) SEAN (stress urinary incontinence, female) Status: Acute Report of Operation Date of Procedure: 02/04/19 Pre-Operative Diagnosis: Stress Urinary Incontinence Post-Operative Diagnosis: Same Surgery/Procedure Performed:: Trans Vaginal Midurethral Sling Placement Description of Surgical Findings:: Urethral hypermobility. Mild cystocele. Patient S/P Vaginal hysterectomy with bilateral salpingectomy immediately preceeding. charging board operator: Nkechi Kim charging board operator: Dilcia Wellington Type of Anesthesia:: General Anesthesiologist: David Luke Special Medications: none Specimen's removed: see Dr. Kim operative report Drains: norman Estimated Blood Loss (mL): 10cc Fluids Replaced: see Dr. Vides operative report Description of Procedure: dr. Kim had performed a vaginal hysterectomy and vaginal cuff closure prior to performing the TVOT placement. Two Allis clamps were placed in the vagina one one cm distal to the urethral meatus and the second 3 cm superior to this. A two cm incision was then made between the Allis clamps. The vagina mucosa was then undermined in a 45 degree angle in the body plane towards the obturator membrane. This was performed with Metzembaum scissors. The obturator membrane was then pierced with the tip of the scissors. A placement guide was then placed into this defect and the right side of the TVOT was placed exiting two cm superior to the level of the urethral meatus two cm lateral to the crural fold. In a similar fashion the left side of the tape was placed. The tension in the tape was adjusted and the distal ends cut. The vaginal mucosal incision was then closed with two interrupted sutures of 3-0 Vicryl. Hemostasis was excellent. Sponge, needle and instrument counts were correct. She was then reversed from anesthesia and taken to the recovery in stable condition. Grafts/Implants Used: Delara transvaginal obturator tape - Complications none - Admit VTE Documentation VTE Present on Admission: No VTE Mechan Device Prophylaxis: SCD's VTE Pharm Prophylaxis ordered?: No
--- NOTE | 2019-02-04 09:48 | OP.PCM_ITS ---
Problem List (1) SEAN (stress urinary incontinence, female) Status: Acute Report of Operation Date of Procedure: 02/04/19 Pre-Operative Diagnosis: Stress Urinary Incontinence Post-Operative Diagnosis: Same Surgery/Procedure Performed:: Trans Vaginal Midurethral Sling Placement Description of Surgical Findings:: Urethral hypermobility. Mild cystocele. Patient S/P Vaginal hysterectomy with bilateral salpingectomy immediately preceeding. society editor: Nkechi Kim society editor: Dilcia Wellington Type of Anesthesia:: General Anesthesiologist: David Luke Special Medications: none Specimen's removed: see Dr. Kim operative report Drains: norman Estimated Blood Loss (mL): 10cc Fluids Replaced: see Dr. Vides operative report Description of Procedure: dr. Kim had performed a vaginal hysterectomy and vaginal cuff closure prior to performing the TVOT placement. Two Allis clamps were placed in the vagina one one cm distal to the urethral meatus and the second 3 cm superior to this. A two cm incision was then made between the Allis clamps. The vagina mucosa was then undermined in a 45 degree angle in the body plane towards the obturator membrane. This was performed with Metzembaum scissors. The obturator membrane was then pierced with the tip of the scissors. A placement guide was then placed into this defect and the right side of the TVOT was placed exiting two cm superior to the level of the urethral meatus two cm lateral to the crural fold. In a similar fashion the left side of the tape was placed. The tension in the tape was adjusted and the distal ends cut. The vaginal mucosal incision was then closed with two interrupted sutures of 3-0 Vicryl. Hemostasis was excellent. Sponge, needle and instrument counts were correct. She was then reversed from anesthesia and taken to the recovery in stable condition. Grafts/Implants Used: Delara transvaginal obturator tape - Complications none - Admit VTE Documentation VTE Present on Admission: No VTE Mechan Device Prophylaxis: SCD's VTE Pharm Prophylaxis ordered?: No
--- NOTE | 2019-02-04 09:51 | PCM.OPRPT ---
Problem List (1) Excessive and frequent menstruation with regular cycle Status: Acute (2) Iron deficiency anemia due to chronic blood loss Status: Chronic Report of Operation Date of Procedure: 02/04/19 Pre-Operative Diagnosis: Excessive and frequent menstruation with regular cycle, iron deficiency anemia Post-Operative Diagnosis: Excessive and frequent menstruation with regular cycle, iron deficiency anemia Surgery/Procedure Performed:: Total vaginal hysterectomy, bilateral salpingectomy, transvaginal tape-obturator Description of Surgical Findings:: Approximately 14-week size uterus, normal-appearing ovaries bilaterally and tubes investigative research specialist: Dilcia Wellington Type of Anesthesia:: General Anesthesiologist: David Luke Special Medications: Vasopressin Specimen's removed: 1. Uterus and cervix, bilateral tubes Drains: Urine output 200 mL Estimated Blood Loss (mL): 150 mL Fluids Replaced: 1000 mL Description of Procedure: Indications: Tiffany is a 43-year-old 3 para 3 with a history of frequent and heavy menstrual bleeding associated iron deficiency anemia. She previously had undergone hysteroscopy D&C approximately 2015 with benign pathology. She subsequently was managed medically however poorly tolerated progestin therapy. Following counseling she opted to proceed with total vaginal hysterectomy and bilateral salpingectomy prophylactically. She also had a history of isolated stress urinary incontinence and plan to undergo TVT O to be performed by Dr. Murillo. Risks, benefits, indications and alternatives of procedure were reviewed. Informed consent was obtained and the patient desired to proceed. Procedure: Patient was taken to the operating room and sinus performed. She is placed in the dorsal supine position and induced under general anesthesia and intubated. She was then repositioned to dorsal lithotomy and the perineum and vagina were prepped and draped in sterile fashion. A Lund catheter was placed into the bladder. The patient was placed into high lithotomy weighted speculum was placed into the vagina and the cervix grasped. A circumferential incision was made using this scalpel along the cervical vaginal junction. The vesicocervical membrane was opened and dissected sharply to identify the anterior peritoneum. The peritoneum was entered sharply and curved Dong was placed at the site. In similar fashion attention was turned posteriorly and the posterior cul-de-sac was entered sharply using some scissors just at the level of the uterosacral ligaments. The uterosacral ligaments, then the cardinal ligaments were bilaterally Nuris clamped, cut and suture ligated using 0 Vicryl. The uterine vessels were clamped, coagulated and cut using the LigaSure impact. The LigaSure impact was used to take down the broad ligament peritoneum bilaterally however given the block of the uterus there was limited visualization apically. I then proceeded with uterine coring which allowed decompression of the uterus and the utero-ovarian ligaments were clamped, coagulated and cut using the LigaSure device. The left tube was isolated and the mesosalpinx was clamped coagulated and transected using LigaSure to perform salpingectomy. In similar fashion right salpingectomy was also performed. A modified Lopez culdoplasty was performed using 0 Vicryl incorporating the uterosacral pedicles with the posterior and anterior pelvic peritoneum. The vaginal cuff was reapproximated using 0 Vicryl serial [id number] sutures with good hemostasis. At this time Dr. Murillo proceeded with performing the TVT O procedure which I assisted. Following TVT O placement the procedure vaginal cuff was reinspected and there was excellent hemostasis. The procedure was completed. The patient was placed into the dorsal supine position, awakened, extubated and transferred to the recovery room without complication. Sponge and needle counts were correct x2. Patient tolerated the procedure well. - Complications None - Admit VTE Documentation VTE Present on Admission: No VTE Mechan Device Prophylaxis: SCD's VTE Pharm Prophylaxis ordered?: No
--- NOTE | 2019-02-04 12:31 | NURSING ---
LR from PACU reset to run at 125cc/hr.- adjusted MAR accordingly
[2019-02-04] MEDS: Varenicline 1 MG Tablet PO ×2 (13:38→22:04)
[2019-02-04] MEDS: oxyCODONE 5 MG Tablet PO ×2 (13:38→18:58)
[2019-02-04] MEDS: Lactated Ringers 1,000 ML 125 ML IV (17:31)
[2019-02-04] MEDS: Ketorolac 30 MG/ML Syringe IV ×2 (17:32→22:05)
[2019-02-04] MEDS: 0.9% NaCl Peripheral Flush Adult/Peds IV ×2 (17:34→22:07)
--- NOTE | 2019-02-04 22:30 | NURSING ---
pt walking in [place] gait steady
[2019-02-05 04:15] VITALS: BP 111/63; PULSE 88; RESP 12; TEMP 36.7; O2SAT 92
[2019-02-05] MEDS: Ketorolac 30 MG/ML Syringe IV ×2 (04:21→09:42)
[2019-02-05] MEDS: Levothyroxine 175 MCG Tablet PO (05:03)
[2019-02-05] MEDS: Heparin Injection (Vial) 5,000 UNIT/ML VIAL 5000 UNIT SC (05:03)
[2019-02-05 07:10] LABS: Hematocrit 27.6 % (37-47); Hemoglobin 8.1 g/dl (12.0-15.0); Mean Corp Hgb Conc 29.3 g/gl (32-36); Mean Corpuscular Hgb 23.6 pg (27.0-32.0); Mean Corpuscular Volume 80.5 fL (81-99); Mean Platelet Vol. 10.2 fl (6.2-12.0); Platelet Count 240 K/mm3 (150-450); RBC Distribution Width CV 17.6 % (11.6-14.6); RBC Distribution Width SD 50.3 fl (35.1-43.9); Red Blood Count 3.43 M/mm3 (4.2-5.4); Scan Indicated on CBC? Y/N NO; White Blood Count 9.4 K/mm3 (4.4-11.0)
[2019-02-05 07:20] VITALS: O2SAT 92
[2019-02-05 07:40] LABS: Creatinine, Serum 0.68 mg/dL (0.55-1.02); EST Glomerular Filtration Rate 102 mL/min (>60); Est Glom Filt Rate - Afr Amer 123 mL/min (>60); Estimated Creatinine Clearance 85.24 ml/min
--- NOTE | 2019-02-05 08:10 | PCM.PN.OB ---
Subjective: Pain controlled, OOB and ambulating, has not voided apart from trickling earlier this morning. She is passing flatus, tolerating and regular diet. No complaints. Objective: avss - Physical Exam General: Alert, Oriented x3, Cooperative, No apparent distress HEENT: Atraumatic, Normocephalic Lungs: Clear to auscultation, Normal air movement Cardiovascular: Regular rate, Regular Rhythm, Normal S1, Normal S2 Abdomen: Bowel Sounds Present, Soft, Non Tender, Non-Distended Extremities: No edema, No Calf Tenderness Neurological: Neuro grossly intact Psych/Mental Status: Normal Affect, Appropriate, Alert and oriented to time, place, person, mood and affect Vital Signs Temp Pulse Resp BP Pulse Ox 98.6 F 81 18 109/60 97 02/05/19 13:37 02/05/19 13:37 02/05/19 13:37 02/05/19 13:37 02/05/19 13:37 Oxygen Delivery Method Room Air Weight: 98.8 kg Body Mass Index (BMI) 38.5 Intake and Output for Last 24 Hours 02/03/19 02/04/19 02/05/19 23:59 23:59 23:59 Intake Total 3246 / 3246 2206 / 2206 Output Total 710 / 710 2430 / 2430 Balance 2536 / 2536 -224 / -224 Laboratory Tests Past 24 Hrs 02/05/19 02/05/19 06:40 06:40 WBC 9.4 RBC 3.43 L Hgb 8.1 L Hct 27.6 L MCV 80.5 L MCH 23.6 L MCHC 29.3 L RDW 17.6 H RDW Differential 50.3 H Plt Count 240 MPV 10.2 Creatinine 0.68 Estim Creat Clear Calc 85.24 Est GFR (MDRD) Af Amer 123 Est GFR (MDRD) Non-Af 102 Medical Necessity - Tobacco Use Smoking Status: Current every day smoker Assessment/Plan All Active Problems SEAN (stress urinary incontinence, female) (Acute) Excessive and frequent menstruation with regular cycle (Acute) 43yo POD#1 s/p TVH, BS, TVT-O with urinary retention. -Routine postop care -s/p straight cath approximately 4am - will continue voiding trial - if no void by 12pm will place norman catheter and d/c home with leg bag
[2019-02-05 09:09] VITALS: BP 128/78; PULSE 88; RESP 18; TEMP 36.7; O2SAT 100
[2019-02-05] MEDS: oxyCODONE 5 MG Tablet PO ×2 (09:38→16:02)
[2019-02-05] MEDS: Varenicline 1 MG Tablet PO (09:41)
--- NOTE | 2019-02-05 10:41 | NURSING ---
pt able to urinate small amount- but then bladder scanned for 450cc. Pt requesting to wait for cath due to beginning to urinate. Notified pt if she becomes uncomfortable to please let staff know so that we can straight cath per orders.
--- NOTE | 2019-02-05 13:36 | NURSING ---
norman placed at 1330- after pt took a shower. (per her request) *due to inability to urinate. 650 out at time of insertion. dr. kathleen montano to be called and notified of same.
[2019-02-05 13:37] VITALS: BP 109/60; PULSE 81; RESP 18; TEMP 37; O2SAT 97
--- NOTE | 2019-02-05 15:16 | NURSING ---
Addendum entered by Zeny Larry 02/05/19 15:19: family updated immediately after phone call. Pt resting in bed with eyes closed, boyfriend and daughter present. Original Note: Called Dr. Kim's office and spoke with nurse Casper regarding pt d/c status again at this time to ensure information regarding 650cc in norman at time of placement and that family is here and pt is ready to be d/c'ed.
--- NOTE | 2019-02-05 15:39 | NURSING ---
Addendum entered by Zeny Larry 02/05/19 16:27: Pt given d/c instructions and med list as well as verbal and handout education regarding norman care. Pt verbalized understanding- however, questioned 1-2week follow up appt. She states that she was told by the Doctor that follow up would be friday. This RN called office and spoke with nurse zoe. Notified her of patient's concern, per her request. Zoe states she would call this RN with info once received. This RN notified pt of same and offered to call her with info, as they were waiting to be d/c'ed. Pt gave number to notify of information received from Dr. Kim. Patient was assisted off of unit in wheelchair by staff. Zoe returned call to this RN and states that pt will have follow up appt in office on Friday at 0830. This RN called pt and notified her of same- understanding verbalized. Original Note: Call received from Kim that pt may be d/c'ed per Dr. Kim's order. Order entered. As this RN was preparing to d/c pt, realized that d/c instructions and summary are not in computer and called office to notify Pennie nurse in office. Understanding verbalized- awaiting d/c instructions and summary.
--- NOTE | 2019-02-05 15:48 | DCINST_ITS ---
Discharge Diet: No Restrictions Discharge Activity: Return to Normal Activity, May not drive while taking narcotic pain medications., May Shower, - - no tub bath x 2 weeks May resume sexual activity in: 6 weeks Lifting Restrictions: 10lb Call your doctor if you observe: Fever of 101 or Higher, Inability to urinate, Inability to have a bowel movement, Using more than one pad per hour, Shortness of breath, Chest pain, Calf discomfort, Uncontrolled pain Suture Line Care: Avoid Pulling/Pushing Allergies/Adverse Reactions: Allergies No Known Allergies Allergy (Verified 02/01/19 10:34) Medications to take at Discharge Levothyroxine [Synthroid] 175 mcg PO DAILY 02/01/19 Varenicline [Chantix] 1 mg PO BID 02/01/19 Docusate Sodium [Colace] 100 mg PO BID PRN PRN #60 capsule 02/05/19 Ibuprofen 600 mg PO TID PRN #30 tablet 02/05/19 Oxycodone [Oxyir] 5 - 10 mg PO Q6H PRN PRN 7 Days #28 tablet 02/05/19 The following prescriptions were given: Oxycodone [Oxyir] 5 - 10 mg PO Q6H PRN PRN 7 Days #28 tablet PRN Reason: Mod-Severe Pain (4-08/19) Docusate Sodium [Colace] 100 mg PO BID PRN PRN #60 capsule PRN Reason: Constipation Ibuprofen 600 mg PO TID PRN #30 tablet PRN Reason: Pain Primary Care Physician: Greg Canales MD [Primary Care Provider] - Test Results: Test results from this visit will be discussed in further detail at your follow- up appointment, if applicable. Please Follow Up With: Nkechi Kim MD When: 1-2 weeks
== END 2019-02-05 16:07 | disposition home or self-care (01) ==
LOC: SDC 02-05 07:02 → MS2 02-05 07:02
PROVIDERS: Anesthesiology; Obstetrics & Gynecology; Admitting Provider Obstetrics & Gynecology; Family Provider Family Medicine; PCP Family Medicine; Referring Provider Obstetrics & Gynecology; Visit Provider Obstetrics & Gynecology
PROC: (CPT 58260; principal; 2019-02-04 06:55)
PROC: 0TJB8ZZ Inspection of Bladder, Via Natural or Artificial Opening Endoscopic (ICD-10-PCS; CPT 57288; 2019-02-04 06:55)
DX: N92.0 Excessive and frequent menstruation with regular cycle (principal); N39.3 Stress incontinence (female) (male); D50.0 Iron deficiency anemia secondary to blood loss (chronic); D25.9 Leiomyoma of uterus, unspecified; N81.10 Cystocele, unspecified; N36.41 Hypermobility of urethra; Z23 Encounter for immunization; R33.9 Retention of urine, unspecified; N80.0 Endometriosis of uterus; N88.8 Other specified noninflammatory disorders of cervix uteri; K21.9 Gastro-esophageal reflux disease without esophagitis; E07.9 Disorder of thyroid, unspecified; F17.200 Nicotine dependence, unspecified, uncomplicated
CPT/HCPCS: 57288; 58262; 36415; 80048; 81025; 82565; 83036; 84439; 84443; 85027; 85610; 85730; 86850; 86900; 88307; 93005; 96361; 96372; 96374; 96376; 99218; J7120; 90686; A4216; C1771; G0378; G0379; J2405

== ENCOUNTER → 2019-02-15 | Outpatient (CLI) | payer OTHER, MEDICAID, SELFPAY ==
[2019-02-04 11:50] VITALS: BMI 38.5
[2019-02-15 13:18] LABS: Amphetamine Urine VISTA NEGATIVE (<1000 ng/mL); Barbiturate Urine VISTA NEGATIVE (< 200 ng/mL); Benzodiazepine Urine VISTA NEGATIVE (< 200 ng/mL); Cocaine Urine VISTA NEGATIVE (< 300 ng/mL); Ecstacy Urine VISTA NEGATIVE (< 500 ng/mL); Methadone Urine VISTA NEGATIVE (< 300 ng/mL); PCP Urine VISTA NEGATIVE (< 25 ng/mL); THC Urine VISTA NEGATIVE (< 50 ng/mL); Vista UDS pH Range 6
== END | disposition home or self-care (01) ==
LOC: LABSPEC 11:44
PROVIDERS: Visit Provider Obstetrics & Gynecology
DX: R35.0 Frequency of micturition (principal); R33.9 Retention of urine, unspecified
CPT/HCPCS: 80307; 87086; 87088

== ENCOUNTER → 2019-07-05 07:44 | Outpatient (CLI) | payer OTHER, SELFPAY ==
[2019-02-04 11:50] VITALS: BMI 38.5
--- NOTE | 2019-07-05 07:49 | BI_ITS ---
MAMMOGRAPHY - BILATERAL SCREENING REASON FOR EXAM: Female, 43 years old. Routine annual screening examination. PERTINENT HISTORY: Non-contributory. TECHNIQUE: Digital bilateral breast urbano (3D mammographic acquisition) in the CC and MLO projections. 2-D mediolateral oblique (MLO) and craniocaudad (CC) views of both breasts were obtained. CAD: Full Field Digital Mammography with Computer Added Detection was performed. COMPARISON: Comparison is made with prior study dated April 20, 2018 and April 14, 2017. FINDINGS: Breast Composition: There are scattered areas of fibroglandular density. There are no dominant masses or suspicious calcifications. No other significant abnormalities are identified. There has been no significant change since the prior study. BI/SCREEN MAMM (CAD) W/URBANO BILAT IMPRESSION: Stable bilateral screening mammogram. Yearly follow-up mammogram recommended. (A) ASSESSMENT CATEGORY: BIRADS Category 1: Negative. A letter regarding these results will be sent to the patient by the facility within 30 days. Approximately 10% of breast cancers are not detected by mammography. A normal mammogram should not delay biopsy of a clinically suspicious abnormality. [id number] Electronically Signed: Yohan Haddad, at 9:51 EDT , Service support ,
== END ==
PROVIDERS: Family Provider Family Medicine; PCP Family Medicine; Referring Provider Obstetrics & Gynecology; Visit Provider Obstetrics & Gynecology
DX: Z12.31 Encounter for screening mammogram for malignant neoplasm of breast (principal)
CPT/HCPCS: 77063; 77067

== ENCOUNTER 2019-10-05 09:28 | Day surgery (SDC) | payer OTHER, SELFPAY ==
[2019-02-04 11:50] VITALS: BMI 38.5
[2019-10-05 10:00] VITALS: BP 133/81; PULSE 75; RESP 14; TEMP 36.2; O2SAT 97; BMI 40.2
[2019-10-05 10:01] LABS: Hematocrit 42.3 % (37-47); Hemoglobin 14.1 g/dL (12.0-15.0); Mean Corp Hgb Conc 33.3 g/dL (32-36); Mean Corpuscular Hgb 28.9 pg (27.0-32.0); Mean Corpuscular Volume 86.7 fL (81-99); Mean Platelet Vol. 10.8 fl (6.2-12.0); Platelet Count 200 K/mm3 (150-450); RBC Distribution Width CV 13.8 % (11.6-14.6); RBC Distribution Width SD 43.8 fl (35.1-43.9); Red Blood Count 4.88 M/mm3 (4.2-5.4)
[2019-10-05] MEDS: Lactated Ringers 1,000 ML 100 ML IV (10:16)
[2019-10-05] MEDS: Cefazolin 2 GM in 0.9% Normal Saline 100 ML IV (11:01)
[2019-10-05 12:02] VITALS: BP 120/55; BP 133/81; PULSE 86; RESP 18; TEMP 36.6; O2SAT 90
--- NOTE | 2019-10-05 12:13 | DCINST_ITS ---
Discharge Diet: No Restrictions Discharge Activity: May not drive while taking narcotic pain medications. Call your doctor if your incision/area has: Continuous Slow Oozing, Sudden Increased Bleeding, Foul Smelling Discharge Call your doctor if you observe: Fever of 101 or Higher, Inability to urinate, Inability to have a bowel movement, Shortness of breath, Chest pain, Calf discomfort, Uncontrolled pain Allergies/Adverse Reactions: Allergies No Known Allergies Allergy (Verified 09/28/19 14:03) Medications to take at Discharge Levothyroxine [Synthroid] 175 mcg PO DAILY 02/01/19 Omeprazole 40 mg PO PRN PRN 09/28/19 Primary Care Physician: Greg Canales MD [Primary Care Provider] - Test Results: Test results from this visit will be discussed in further detail at your follow- up appointment, if applicable. Please Follow Up With: Delma Acosta MD When: call office for referral information Proposed Discharge Date: 10/05/19
[2019-10-05 12:15] VITALS: BP 133/81; BP 95/53; PULSE 75; RESP 18; O2SAT 96
--- NOTE | 2019-10-05 12:15 | PCM.OPRPT ---
Problem List (1) Urethral obstruction Status: Acute (2) Dysuria Status: Acute Report of Operation Date of Procedure: 10/05/19 Pre-Operative Diagnosis: pain with voiding and urethral obstruction after midurethral sling Post-Operative Diagnosis: same Surgery/Procedure Performed:: vaginal exploration, cystoscopy Type of Anesthesia:: General Specimen's removed: none Estimated Blood Loss (mL): 10cc Description of Procedure: The patient is a 44-year-old female who underwent a hysterectomy and TVT sling in January 2019 by another physician. She had retention status post the procedure and went home with a Lund catheter. She was eventually able to void on her own and presented to the office for evaluation of urgency, urge incontinence, pain with voiding. On evaluation in the office with cystoscopy and pelvic exam, there was a tightening at the distal urethra concerning for obstructive voiding pattern secondary to the sling. After informed consent, the patient agreed to proceed with incision of mid urethral sling and cystoscopy under anesthesia. The patient was taken to the operating room and placed on the operating room table. Anesthesia monitored the head, neck, airway, IV access and vital signs throughout the case. Once anesthesia was appropriately administered, the patient was placed into dorsal lithotomy position and was prepped and draped in usual sterile fashion. A 16 Malagasy Lund catheter was inserted and the bladder was drained. The submucosa was injected with 1% Xylocaine with epinephrine for hydrostatic dissection. A U incision was made over the urethra. I was unable to identify the sling after sharp dissection. A ureteroscopy was then performed which revealed exposure of one edge of the mid urethral sling in the distal aspect of the urethra approximately 0.75 mm from the meatus. At this time I closed the U incision running interlocking 2-0 Vicryl. The patient was then awakened and taken to the recovery room in good condition. The patient will be referred for urethral reconstruction and excision of mid urethral sling. There were no complications during the procedure today. - Complications none - Admit VTE Documentation VTE Present on Admission: Yes VTE Mechan Device Prophylaxis: SCD's VTE Pharm Prophylaxis ordered?: No Reason prophylaxis not ordered:: Treatment Not Indicated
[2019-10-05 12:30] VITALS: BP 116/72; BP 133/81; PULSE 74; RESP 18; O2SAT 93
[2019-10-05 12:38] VITALS: BP 114/75; BP 133/81; PULSE 70; RESP 18; TEMP 36.6; O2SAT 97
[2019-10-05 13:43] VITALS: BP 119/78; BP 133/81; PULSE 67; RESP 18; TEMP 36.4; O2SAT 97
== END 2019-10-05 14:16 | disposition home or self-care (01) ==
LOC: SDC 09:30 → AC 09:30
PROVIDERS: Anesthesiology; Family Provider Family Medicine; PCP Family Medicine; Referring Provider Urology; Visit Provider Urology
PROC: 0TJB8ZZ Inspection of Bladder, Via Natural or Artificial Opening Endoscopic (ICD-10-PCS; CPT 57288; principal; 2019-10-05 11:00)
DX: R30.0 Dysuria (principal); F17.200 Nicotine dependence, unspecified, uncomplicated; Z90.710 Acquired absence of both cervix and uterus; R30.9 Painful micturition, unspecified; N39.41 Urge incontinence; N36.9 Urethral disorder, unspecified
CPT/HCPCS: 00860; 57288; 85027; J7120; J2405

== ENCOUNTER → 2020-09-04 07:22 | Outpatient (CLI) | payer OTHER, SELFPAY ==
--- NOTE | 2020-09-04 07:25 | BI_ITS ---
MAMMOGRAPHY - BILATERAL SCREENING REASON FOR EXAM: Female, 45 years old. Routine annual screening examination. PERTINENT HISTORY: Non-contributory. TECHNIQUE: Digital bilateral breast urbano (3D mammographic acquisition) in the CC and MLO projections. 2-D mediolateral oblique (MLO) and craniocaudad (CC) views of both breasts were obtained. CAD: Full Field Digital Mammography with Computer Added Detection was performed. COMPARISON: Comparison is made with prior study dated 07/05/2019 and 04/20/2018. FINDINGS: Breast Composition: There are scattered areas of fibroglandular density. There are no dominant masses or suspicious calcifications. No other significant abnormalities are identified. There has been no significant change since the prior study. BI/SCREEN MAMM (CAD) W/URBANO BILAT IMPRESSION: Stable bilateral screening mammogram. Yearly follow-up mammogram recommended. (A) ASSESSMENT CATEGORY: BIRADS Category 1: Negative. A letter regarding these results will be sent to the patient by the facility within 30 days. Approximately 10% of breast cancers are not detected by mammography. A normal mammogram should not delay biopsy of a clinically suspicious abnormality. [id number] Electronically Signed: Yohan Haddad, at 8:53 EDT , Service support ,
== END ==
PROVIDERS: PCP Family Medicine; Referring Provider Obstetrics & Gynecology; Visit Provider Obstetrics & Gynecology
DX: Z12.31 Encounter for screening mammogram for malignant neoplasm of breast (principal)
CPT/HCPCS: 77063; 77067

== ENCOUNTER → 2021-09-14 11:12 | Outpatient (CLI) | payer OTHER, SELFPAY ==
[2021-09-14 13:04] LABS: Estradiol 292.2 pg/mL; Follicle Stimulating Hormone 4.5 mIU/mL
[2021-09-14 18:42] LABS: Free T3 3.3 pg/mL (2.18-3.98); T4 Free Direct 1.45 ng/dL (0.76-1.46)
[2021-09-16 08:07] LABS: DHEA Sulfate 48.8 ug/dL (41.2-243.7)
== END ==
PROVIDERS: PCP Family Medicine; Visit Provider Obstetrics & Gynecology
DX: R68.82 Decreased libido (principal); N91.2 Amenorrhea, unspecified; R23.2 Flushing; E05.90 Thyrotoxicosis, unspecified without thyrotoxic crisis or storm
CPT/HCPCS: 36415; 82627; 82670; 83001; 84270; 84403; 84439; 84443; 84445; 84480; 84481; 86376; 86800; 82626

== ENCOUNTER → 2021-10-01 07:05 | Outpatient (CLI) | payer OTHER, SELFPAY ==
--- NOTE | 2021-10-01 07:08 | BI_ITS ---
MAMMOGRAPHY - BILATERAL SCREENING 3-D TOMOSYNTHESIS REASON FOR EXAM: Female, 46 years old. Routine screening PERTINENT HISTORY: No significant family history. TECHNIQUE: 2-D mammograms and 3-D Tomosynthesis of the breast (s) were performed. CAD was performed. COMPARISON: 09/04/2020 FINDINGS: The breast composition is composed of scattered fibroglandular density. Scattered benign calcifications are seen. No dense spiculated masses or suspicious microcalcifications are identified. No architectural distortion is identified. There is no skin thickening or retraction. There has been no significant change since the prior study. BI/SCRN MAMM (CAD)W/URBANO BILAT IMPRESSION: No mammographic signs of malignancy. Routine yearly mammograms recommended. ASSESSMENT CATEGORY: BIRADS Category 1: Negative. A letter regarding these results will be sent to the patient by the facility within 30 days. FOLLOW UP RECOMMENDATION: Yearly follow up mammogram recommended. (A) Approximately 10% of breast cancers are not detected by mammography. A normal mammogram should not delay biopsy of a clinically suspicious abnormality. Electronically Signed: Javed Tillman MD at 12:19 EST , Service support ,
== END ==
PROVIDERS: PCP Family Medicine; Visit Provider Obstetrics & Gynecology
DX: Z12.31 Encounter for screening mammogram for malignant neoplasm of breast (principal)
CPT/HCPCS: 77063; 77067

== ENCOUNTER → 2022-10-28 | Outpatient (CLI) | payer OTHER, SELFPAY ==
--- NOTE | 2022-10-28 12:09 | BI_ITS ---
MAMMOGRAPHY - BILATERAL SCREENING REASON FOR EXAM: Female, 47 years old. Routine annual screening examination. PERTINENT HISTORY: Non-contributory. TECHNIQUE: Digital bilateral breast urbano (3D mammographic acquisition) in the CC and MLO projections. 2-D mediolateral oblique (MLO) and craniocaudad (CC) views of both breasts were obtained. CAD: Full Field Digital Mammography with Computer Added Detection was performed. COMPARISON: Comparison is made with prior study dated 10/01/2021 and 09/04/2020. FINDINGS: Breast Composition: There are scattered areas of fibroglandular density. There are no dominant masses or suspicious calcifications. No other significant abnormalities are identified. There has been no significant change since the prior study. BI/SCRN MAMM (CAD)W/URBANO BILAT IMPRESSION: Stable bilateral screening mammogram. Yearly follow-up mammogram recommended. (A) ASSESSMENT CATEGORY: BIRADS Category 1: Negative. A letter regarding these results will be sent to the patient by the facility within 30 days. Approximately 10% of breast cancers are not detected by mammography. A normal mammogram should not delay biopsy of a clinically suspicious abnormality. [id number] Electronically Signed: Yohan Haddad MD at 15:41 EST ,
== END | disposition home or self-care (01) ==
LOC: OPBI 12:08
PROVIDERS: PCP Family Medicine
DX: Z12.31 Encounter for screening mammogram for malignant neoplasm of breast (principal)
CPT/HCPCS: 77063; 77067

== ENCOUNTER → 2023-10-30 | Outpatient (CLI) | payer OTHER, SELFPAY ==
--- NOTE | 2023-10-30 15:59 | BI_ITS ---
MAMMOGRAPHY - BILATERAL SCREENING REASON FOR EXAM: Female, 48 years old. Routine annual screening examination. PERTINENT HISTORY: Non-contributory. TECHNIQUE: Digital bilateral breast urbano (3D mammographic acquisition) in the CC and MLO projections. 2-D mediolateral oblique (MLO) and craniocaudad (CC) views of both breasts were obtained. CAD: Full Field Digital Mammography with Computer Added Detection was performed. COMPARISON: Comparison is made with prior study October 28, 2022 and October 01, 2021. FINDINGS: Breast Composition: There are scattered areas of fibroglandular density. There are no dominant masses or suspicious calcifications. Stable benign-appearing bilateral axillary lymph nodes. No other significant abnormalities are identified. There has been no significant change since the prior study. BI/SCRN MAMM (CAD)W/URBANO BILAT IMPRESSION: Stable bilateral screening mammogram. Yearly follow-up mammogram recommended. (A) ASSESSMENT CATEGORY: BIRADS Category 2: Benign. A letter regarding these results will be sent to the patient by the facility within 30 days. Approximately 10% of breast cancers are not detected by mammography. A normal mammogram should not delay biopsy of a clinically suspicious abnormality. [id number] Electronically Signed: Yohan Haddad MD at 7:45 EST ,
== END | disposition home or self-care (01) ==
LOC: OPBI 15:58
PROVIDERS: PCP Family Medicine
DX: Z12.31 Encounter for screening mammogram for malignant neoplasm of breast (principal)
CPT/HCPCS: 77063; 77067

== ENCOUNTER → 2024-11-08 | Outpatient (CLI) | payer OTHER, SELFPAY ==
--- NOTE | 2024-11-08 07:26 | BI_ITS ---
MAMMOGRAPHY - BILATERAL SCREENING 3-D TOMOSYNTHESIS REASON FOR EXAM: Female, 49 years old. SCREENING PERTINENT HISTORY: No significant family history. TECHNIQUE: 2-D mammograms and 3-D Tomosynthesis of the breast (s) were performed. CAD was performed. COMPARISON: 10/30/2023 FINDINGS: The breast composition is composed of scattered fibroglandular density. Scattered benign calcifications are seen. No dense spiculated masses or suspicious microcalcifications are identified. No architectural distortion is identified. There is no skin thickening or retraction. There has been no significant change since the prior study. BI/SCRN MAMM (CAD)W/URBANO BILAT IMPRESSION: No mammographic signs of malignancy. Routine yearly mammograms recommended. ASSESSMENT CATEGORY: BIRADS Category 1: Negative. A letter regarding these results will be sent to the patient by the facility within 30 days. FOLLOW UP RECOMMENDATION: Yearly follow up mammogram recommended. (A) Approximately 10% of breast cancers are not detected by mammography. A normal mammogram should not delay biopsy of a clinically suspicious abnormality. Electronically Signed: Samuel Lay MD at 20:36 EST ,
== END | disposition home or self-care (01) ==
LOC: OPBI 07:23
PROVIDERS: PCP Family Medicine
DX: Z12.31 Encounter for screening mammogram for malignant neoplasm of breast (principal)
CPT/HCPCS: 77063; 77067

== ENCOUNTER → 2025-02-14 | Outpatient (CLI) | payer OTHER, SELFPAY | END | disposition home or self-care (01) | PROVIDERS: PCP Family Medicine; Referring Provider Nurse Practitioner Family; Visit Provider Nurse Practitioner Family | DX: N76.0 Acute vaginitis (principal) | CPT/HCPCS: 87070; 87205 ==